=== PATIENT | female | born 1945 | race Caucasian/White ===

== ENCOUNTER 2016-12-20 00:24 | Observation (INO) | payer MEDICARE, MEDICAID ==
[~2016-12-20 00:24] MED LIST: ASPI81TA11 OR; ATEN1TAB73 PO; HYDR-3535 PO
[2016-12-20 00:26] VITALS: BP 187/89; PULSE 66; RESP 20; TEMP 97.8; O2SAT 95
[2016-12-20 01:30] VITALS: BP 166/79; PULSE 61; RESP 16; O2SAT 95; O2SAT 97
[2016-12-20] MEDS ORDERED: ASPIRIN 81 MG CHEW TAB PO ONE (01:45)
[2016-12-20] MEDS ORDERED: NITROGLYCERIN 2% OINT 1 GM PACKET TOP ONE (01:45)
[2016-12-20] MEDS ORDERED: NITROGLYCERIN 0.4 MG SL 25 TABS/BTL SL ONE (01:45)
[2016-12-20] MEDS ORDERED: SODIUM CHLORIDE 0.9% FLUSH 10 ML FLUSH IVF PRN (01:45)
--- NOTE | 2016-12-20 02:09 | RADRPT ---
EXAM DATE/TIME: 12/20/2016 01:51 [facility] COMPARISON: CHEST SINGLE AP, August 06, 2014, 16:56. INDICATIONS : Chest pain, shortness of breath. MEDICAL HISTORY : Hypertension. Diabetes mellitus type II. Hepatitis B. Arthritis. SURGICAL HISTORY : None. ENCOUNTER: Initial ACUITY: 1 day PAIN SCORE: 10/10 LOCATION: Right upper chest FINDINGS: A single view of the chest demonstrates the lungs to be symmetrically aerated without evidence of mas s, infiltrate or effusion. Chronic elevation of the right hemidiaphragm. The cardiomediastinal contou rs are unremarkable. Osseous structures are intact. CONCLUSION: No acute disease. Benson Johnson Jr., MD on December 20, 2016 at 2:07 Board Certified Radiologist. This report was verified electronically.
[2016-12-20 02:22] LABS: BASOPHIL # 0.1 TH/MM3 (0-0.2); BASOPHIL % 1.3 % (0.0-2.0); EOSINOPHIL # 0.1 TH/MM3 (0-0.4); EOSINOPHIL % 1.7 % (0.0-4.0); HEMATOCRIT 40.6 % (35.0-46.0); HEMO FLAGS DIFF FINAL; LYMPH % 19.3 % (9.0-44.0); LYMPHOCYTE # 1.7 TH/MM3 (1.0-4.8); MEAN CELL VOLUME 87.1 FL (80.0-100.0); MEAN CORPUSCULAR HEMOGLOBIN 29.2 PG (27.0-34.0); MEAN CORPUSCULAR HGB CONC 33.5 % (32.0-36.0); MONO % 6.8 % (0.0-8.0); NEUT % 70.9 % (16.0-70.0); PLATELET COUNT 307 TH/MM3 (150-450); RED BLOOD COUNT 4.66 MIL/MM3 (4.00-5.30); RED CELL DISTRIBUTION WIDTH 15.9 % (11.6-17.2); WHITE BLOOD COUNT 8.5 TH/MM3 (4.0-11.0)
--- NOTE | 2016-12-20 02:30 | PD ---
HPI Chief Complaint: Chest Pain Time Seen by Provider: 01:28 Travel History International Travel<30 days: No Contact w/Intl Traveler<30days: No Traveled to known affect area: No History of Present Illness HPI The patient is a 71 year old female who presents to the [facility] emergency department with a history of chest pain that began suddenly 20-30 minutes after eating a fatty meal at 8 PM. The patient reports that the pain initially began in her back and then radiated around underneath bilateral breasts. The patient reports that the pain was similar to prior episodes of angina. 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 She has made an appointment to follow-up recently. She reports that on November 28 she was actually seen at [facility] related to a recurrence of her atrial fibrillation. She reports that she does take an aspirin daily for this. The patient reports that her last stress test was approximately 7 years ago. She reports that she took in total 3 sublingual nitroglycerin to relieve the pain. She reports that the third one while did help. She denies having any diaphoresis, radiation of pain up into her jaw or into her arms, nausea or vomiting associated with this. She does however report having some dyspnea on exertion today. The patient denies any recent fevers, cough, congestion, neck pain, abdominal pain, vomiting, diarrhea, urinary symptoms, or neurologic symptoms. [facility] Past Medical History Narrative Medical The patient's past medical history is significant for a reported history of atrial fibrillation, angina, arthritis with chronic pain in her back, anxiety disorder, and hypertension. Hx Anticoagulant Therapy: Yes Arthritis: Yes Asthma: No Atrial Fibrillation: Yes (RATE CONTROLLED) Autoimmune Disease: No Anxiety: Yes Cardiovascular Problems: Yes COPD: No Cerebrovascular Accident: Yes Diabetes: Yes Hepatitis: Yes (B) Hypertension: Yes Seizures: No Thyroid Disease: No ?: Not Menopausal: Yes Dilation and Curettage (D&C): Yes (x 2) Past Surgical History Narrative Surgical The patient's past surgical history is reportedly significant for a cholecystectomy. Cholecystectomy: Yes Genitourinary Surgery: Yes (HEMORRIODS) Gynecologic Surgery: Yes (D&C x 2) Other Surgery: Yes (HEMORRHOIDECTOMY) Social History Alcohol Use: Yes (OCC) Tobacco Use: No Substance Use: No Allergies-Medications (Allergen,Severity, Reaction): Coded Allergies: Enalapril (Verified Allergy, Severe, TONGU SWELLING, 12/20/16) Latex (Verified Allergy, Severe, Rash, 12/20/16) Relafen (Verified Allergy, Severe, Anaphylaxis, 12/20/16) Shellfish (Verified Allergy, Severe, HIVES, 12/20/16) PT DENIES ALLERGY Phenergan (Verified Allergy, Mild, 12/20/16) FELT LIKE SHE COULDN'T MOVE AFTER IM; PT STATES SHE CAN TAKE PO Uncoded Allergies: STEROID (Adverse Reaction, Severe, TACHYCARDIA , 10/06/12) Reported Meds & Prescriptions Reported Meds & Active Scripts Active Reported Ativan (Lorazepam) 0.5 Mg Tab 0.5 Mg PO DAILY PRN Nitrostat SL (Nitroglycerin) 0.4 Mg Subl 0.4 Mg SL DIRECTED PRN 1 tablet under the tongue as needed for chest pain. Repeat every 5 minutes for a total of 3 DOSES or call 911 if NO relief. Niacin 500 Mg Tab 500 Mg PO DAILY Lortab (Hydrocodone-Acetaminophen) 10-325 Mg Tab 1 Tab PO BID PRN Aspirin 81 Mg Tabdr 81 Mg PO DAILY Atenolol 25 Mg Tab 25 Mg PO DAILY Cartia Xt (Diltiazem ER 24 HR) 240 Mg Caper 240 Mg PO DAILY Review of Systems Except as stated in HPI: all other systems reviewed are Neg General / Constitutional: No: Fever Eyes: No: Visual changes HENT: No: Headaches, Congestion Cardiovascular: Positive: Chest Pain or Discomfort, Dyspnea on exertion Respiratory: Positive: Shortness of Breath, No: Cough Gastrointestinal: No: Abdominal Pain Genitourinary: No: Dysuria Musculoskeletal: No: Pain Skin: No Rash Neurologic: No: Weakness Psychiatric: No: Depression Endocrine: No: Polydipsia Hematologic/Lymphatic: No: Easy Bruising Physical Exam Narrative General: The patient is a well-developed well-nourished female in no acute distress. Head and Neck exam: Head is normocephalic atraumatic. Eyes: EOMI, pupils are equal round and reactive to light. Nose: Midline septum with pink mucous membranes Mouth: Dentition unremarkable. Moist mucus membranes. Posterior oropharynx is not erythematous. No tonsillar hypertrophy. Uvula midline. Airway patent. Neck: No palpable lymphadenopathy. No nuchal rigidity. No thyromegaly. Cardiovascular: Regular rate and rhythm without murmurs, gallops, or rubs. No pulse deficit to the extremities and simultaneous auscultation and palpation of her radial artery. Lungs: Clear to auscultation bilaterally. No wheezes, rhonchi, or rales. Abdomen: Soft, without tenderness to palpation in all 4 quadrants of the abdomen. No guarding, rebound, or rigidity. Normal bowel sounds are audible. No tenderness on palpation of McBurney's point. Negative [place] sign. Extremities: No clubbing, cyanosis, or edema. 2+ pulses in all 4 extremities. No calf tenderness on palpation. Back: No spinous process tenderness to palpation. No costovertebral angle tenderness to palpation. Neurologic Exam: Grossly nonfocal. Skin Exam: No rash noted. Intact skin that is warm and dry. Data Data Last Documented VS Vital Signs Date Time Temp Pulse Resp B/P Pulse Ox O2 Delivery O2 Flow Rate FiO2 12/20/16 01:30 61 16 166/79 95 Room Air 12/20/16 00:26 97.8 Orders Electrocardiogram (12/20/16 01:35) B-Type Natriuretic Peptide (12/20/16 01:35) Ckmb (Isoenzyme) Profile (12/20/16 01:35) Complete Blood Count With Diff (12/20/16 01:35) Comprehensive Metabolic Panel (12/20/16 01:35) Magnesium (Mg) (12/20/16 01:35) Prothrombin Time / Inr (Pt) (12/20/16 01:35) Act Partial Throm Time (Ptt) (12/20/16 01:35) Troponin I (12/20/16 01:35) Lipase (12/20/16 01:35) Chest, Single Ap (12/20/16 01:35) Ecg Monitoring (12/20/16 01:35) Bilateral Bp Monitoring (12/20/16 01:35) Iv Access Insert/Monitor (12/20/16 01:35) Oximetry (12/20/16 01:35) Oxygen Administration (12/20/16 01:35) Aspirin Chew (Aspirin Chew) (12/20/16 01:45) Nitroglycerin 2% Oint (Nitroglycerin 2% (12/20/16 01:45) Sodium Chloride 0.9% Flush (Ns Flush) (12/20/16 01:45) Nitroglycerin Sl (Nitrostat Sl) (12/20/16 01:45) Admit Order (Ed Use Only) (12/20/16 03:21) Labs Laboratory Tests Test 12/20/16 02:05 White Blood Count 8.5 TH/MM3 Red Blood Count 4.66 MIL/MM3 Hemoglobin 13.6 GM/DL Hematocrit 40.6 % Mean Corpuscular Volume 87.1 FL Mean Corpuscular Hemoglobin 29.2 PG Mean Corpuscular Hemoglobin 33.5 % Concent Red Cell Distribution Width 15.9 % Platelet Count 307 TH/MM3 Mean Platelet Volume 8.8 FL Neutrophils (%) (Auto) 70.9 % Lymphocytes (%) (Auto) 19.3 % Monocytes (%) (Auto) 6.8 % Eosinophils (%) (Auto) 1.7 % Basophils (%) (Auto) 1.3 % Neutrophils # (Auto) 6.0 TH/MM3 Lymphocytes # (Auto) 1.7 TH/MM3 Monocytes # (Auto) 0.6 TH/MM3 Eosinophils # (Auto) 0.1 TH/MM3 Basophils # (Auto) 0.1 TH/MM3 CBC Comment DIFF FINAL Differential Comment Prothrombin Time 10.1 SEC Prothromb Time International 0.9 RATIO Ratio Activated Partial 26.1 SEC Thromboplast Time Sodium Level 142 MEQ/L Potassium Level 3.8 MEQ/L Chloride Level 107 MEQ/L Carbon Dioxide Level 27.7 MEQ/L Anion Gap 7 MEQ/L Blood Urea Nitrogen 18 MG/DL Creatinine 1.06 MG/DL Estimat Glomerular Filtration 51 ML/MIN Rate Random Glucose 98 MG/DL Calcium Level 9.5 MG/DL Magnesium Level 2.2 MG/DL Total Bilirubin 0.3 MG/DL Aspartate Amino Transf 18 U/L (AST/SGOT) Alanine Aminotransferase 22 U/L (ALT/SGPT) Alkaline Phosphatase 65 U/L Total Creatine Kinase 77 U/L Troponin I LESS THAN 0.02 NG/ML B-Type Natriuretic Peptide 15 PG/ML Total Protein 7.2 GM/DL Albumin 3.5 GM/DL Lipase 231 U/L MDM Medical Decision Making Medical Screen Exam Complete: Yes Emergency Medical Condition: Yes Medical Record Reviewed: Yes Interpretation(s) Last Impressions Chest X-Ray 12/20/16 6249 Signed Impressions: Service Date/Time: Tuesday, December 20, 2016 01:51 - CONCLUSION: No acute disease. Benson Johnson Jr., MD Differential Diagnosis Acute coronary syndrome, versus anxiety disorder, versus acid reflux, versus recurrence of A. fib with RVR, versus new-onset congestive heart failure, versus pneumonia, versus pneumothorax, versus pyelonephritis Narrative Course During the course of the patients emergency department visit, the patients history, examination, and differential diagnosis were reviewed with the patient. The patient had IV access obtained and blood work sent for analysis. The patient was placed on a hall monitor with oximetry and blood pressure monitoring. An EKG was done on arrival. The patient's EKG shows a sinus rhythm heart rate is 61, no acute ST segment elevation or depression. T waves are inverted in V1, V2. The patient was initially provided aspirin 162 mg by mouth 1. Nitroglycerin sublingual 1, nitroglycerin 1 inch the chest wall. The patients laboratory studies were reviewed and remarkable for a white count of 8.5, hemoglobin 13.6, platelets 307 with neutrophils 70.9, CMP is remarkable for creatinine 1.06, GFR 51, troponin I less than 0.02, CPK 77, BNP 15, lipase 231, PT PTT within normal limits. Radiology studies were reviewed and remarkable for a chest x-ray that shows no acute abnormality. The patients results were discussed with the patient, including the plan of care. I explained that further testing and/ or monitoring is indicated based on the patients history, examination, and/ or laboratory findings. Therefore, I recommended admission for additional evaluation. The patient expressed understanding and was agreeable with this plan. The patient was admitted to the hospital in stable condition and sent to a bed under the care of the chest pain center. Diagnosis Primary Impression: Chest pain, rule out acute myocardial infarction Admitting Information Admitting Physician Requests: June Christian MD December 20, 2016 02:30
[2016-12-20 02:32] LABS: APTT (PATIENT) 26.1 SEC (24.3-30.1); INTERNATIONAL NORMALIZED RATIO 0.9 RATIO; PROTHROMBIN TIME - PATIENT 10.1 SEC (9.8-11.6)
[2016-12-20 02:53] LABS: ALT (GPT) 22 U/L (10-53); ANION GAP 7 MEQ/L (5-15); AST (GOT) 18 U/L (15-37); BICARBONATE 27.7 MEQ/L (21.0-32.0); BLOOD UREA NITROGEN 18 MG/DL (7-18); CHLORIDE 107 MEQ/L (98-107); GLOMERULAR FILTRATION RATE 51 ML/MIN (>89); MAGNESIUM 2.2 MG/DL (1.5-2.5); POTASSIUM 3.8 MEQ/L (3.5-5.1); SODIUM (NA) 142 MEQ/L (136-145)
[2016-12-20 02:57] LABS: ALKALINE PHOSPHATASE 65 U/L (45-117); TOTAL BILIRUBIN ADULT 0.3 MG/DL (0.2-1.0)
[2016-12-20 03:07] LABS: CREATINE KINASE 77 U/L (26-192)
[2016-12-20] MEDS ORDERED: ASPI1TAB69 PO (03:10)
[2016-12-20] MEDS ORDERED: CART240C PO (03:10)
[2016-12-20] MEDS ORDERED: HYDR-3535 PO (03:10)
[2016-12-20] MEDS ORDERED: NIAC500T5 PO (03:10)
[2016-12-20] MEDS ORDERED: LORA-392 PO (03:10)
[2016-12-20] MEDS ORDERED: NITR0.4S SL (03:10)
[2016-12-20] MEDS ORDERED: ATEN25TA PO (03:10)
[2016-12-20] MEDS ORDERED: ACETAMINOPHEN 500 MG CPLT PO PRN (04:15)
[2016-12-20] MEDS ORDERED: SODIUM CHLORIDE 0.9% FLUSH 10 ML FLUSH IV FLUSH PRN (04:15)
[2016-12-20] MEDS ORDERED: ONDANSETRON HCL 4 MG/2 ML VIAL IV PRN (04:15)
[2016-12-20] MEDS: NITROGLYCERIN 2% OINT 1 GM PACKET TOP SCH ×2 (06:00→12:00)
[2016-12-20 06:01] LABS: CREATINE KINASE 65 U/L (26-192)
[2016-12-20] MEDS ORDERED: LORazepam 0.5 MG TAB PO PRN (08:00)
[2016-12-20] MEDS ORDERED: ACETAMINOPHEN/HYDROcodone 325 MG/10 MG TAB PO PRN (08:00)
[2016-12-20 08:03] VITALS: BP 160/74; PULSE 60; RESP 22; TEMP 98.4; O2SAT 93
--- NOTE | 2016-12-20 08:20 | HHI.HP ---
[facility] Primary Care Physician Isra Ibanez MD Chief Complaint Chest pain History of Present Illness This is a 71-year-old female that presents to ED via private vehicle complaining of chest discomfort. She states that she had a fatty meal about 8: 00 last evening and 1 hour later she developed pain across her lower chest. It was a 4-5 out of 10. She took 3 baby aspirins and a subluminal nitroglycerin which does change her symptoms. She took another subluminal nitroglycerin without change. She states the third subluminal nitroglycerin did bring the discomfort down a little bit but not resolved. The symptoms last several hours. She had no associated short of breath nausea or diaphoresis. Patient states she's had myocardial infarctions in the past. Has never had a heart catheterization. 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 Dao but also states she has not seen her in several years. She states that she suffers from social anxiety disorder and has a hard time getting out of the house. She also has history of paroxysmal atrial fibrillation and states it has been a several years since she's had A. fib. Denies recent illness. Denies fevers or chills. Review of Systems General: Patient denies fevers, chills recent, and recent travel HEENT: Patient denies headache, sore throat, difficulty swallowing. Cardiovascular: Has the chest discomfort as mentioned above. Denies sensation of heart beating rapidly or irregularly. No syncope. Denies diaphoresis. Respiratory: Denies shortness of breath or inspirational chest discomfort. Denies coughing wheezing or hemoptysis. GI: Patient denies nausea, vomiting, diarrhea, abdominal pain, bloody stools. Musculoskeletal: Patient denies joint pain or edema. Denies calf pain or edema. Neurovascular: Patient denies numbness, tingling, weakness in extremities. Denies headache. Endocrine: Denies polyuria and polydipsia. Hematologic: Denies easy bruising. Skin: Denies rash or itching. Past Family Social History Allergies: Coded Allergies: Enalapril (Verified Allergy, Severe, TONGU SWELLING, 12/20/16) Latex (Verified Allergy, Severe, Rash, 12/20/16) Relafen (Verified Allergy, Severe, Anaphylaxis, 12/20/16) Shellfish (Verified Allergy, Severe, HIVES, 12/20/16) PT DENIES ALLERGY Phenergan (Verified Allergy, Mild, 12/20/16) FELT LIKE SHE COULDN'T MOVE AFTER IM; PT STATES SHE CAN TAKE PO Uncoded Allergies: STEROID (Adverse Reaction, Severe, TACHYCARDIA , 10/06/12) Past Medical History Paroxysmal atrial fibrillation, CVA in 1999, social anxiety disorder, hyperlipidemia. States she had an HI in the past but denies further workup to evaluate for coronary artery disease. Denies diabetes and hypertension. Past Surgical History Cholecystectomy, hemorrhoidectomy, D&C. Reported Medications Reported Meds & Active Scripts Active Reported Ativan (Lorazepam) 0.5 Mg Tab 0.5 Mg PO DAILY PRN Nitrostat SL (Nitroglycerin) 0.4 Mg Subl 0.4 Mg SL DIRECTED PRN 1 tablet under the tongue as needed for chest pain. Repeat every 5 minutes for a total of 3 DOSES or call 911 if NO relief. Niacin 500 Mg Tab 500 Mg PO DAILY Lortab (Hydrocodone-Acetaminophen) 10-325 Mg Tab 1 Tab PO BID PRN Aspirin 81 Mg Tabdr 81 Mg PO DAILY Atenolol 25 Mg Tab 25 Mg PO DAILY Cartia Xt (Diltiazem ER 24 HR) 240 Mg Caper 240 Mg PO DAILY Active Ordered Medications Current Medications Medications (Trade) Dose Ordered Sig/Huy Route Start Time Stop Time Status Last Admin (NS Flush) 2 ml UNSCH PRN IVF 12/20/16 01:45 (NS Flush) 2 ml UNSCH PRN IV FLUSH 12/20/16 04:15 (NS Flush) 2 ml BID IV FLUSH 12/20/16 09:00 (Tylenol) 500 mg Q4H PRN PO 12/20/16 04:15 (Zofran Inj) 4 mg Q6H PRN IV 12/20/16 04:15 (Protonix) 40 mg DAILY PO 12/20/16 09:00 (Nitroglycerin 2% Oint) 1 inch Q6HR TOP 12/20/16 06:00 (Aspirin) 325 mg DAILY PO 12/20/16 09:00 (Ecotrin Ec) 81 mg DAILY PO 12/20/16 09:00 UNV (Tenormin) 25 mg DAILY PO 12/20/16 09:00 UNV (Cardizem Cd) 240 mg DAILY PO 12/20/16 09:00 UNV ([place] 10-325 Mg) 1 tab BID PRN PO 12/20/16 08:00 UNV (Ativan) 0.5 mg DAILY PRN PO 12/20/16 08:00 UNV Family History There is family history of CAD. Social History Patient does not smoke, drink alcohol, or use illicit drugs. Physical Exam Vital Signs Vital Signs Date Time Temp Pulse Resp B/P Pulse Ox O2 Delivery O2 Flow Rate FiO2 12/20/16 08:03 98.4 60 22 160/74 93 12/20/16 01:30 61 16 166/79 95 Room Air 12/20/16 01:30 97 Room Air 12/20/16 00:26 97.8 66 20 187/89 95 Room Air Physical Exam GENERAL: This is a well-nourished, well-developed patient, in no apparent distress. Patient speaks in clear complete sentences. Patient is pleasant. HEENT: Head is atraumatic and normocephalic. Neck is supple without lymphadenopathy and trachea is midline. No JVD or carotid bruits. CARDIOVASCULAR: Regular rate and rhythm without murmurs, gallops, or rubs. RESPIRATORY: Clear to auscultation. Breath sounds equal bilaterally. No wheezes , rales, or rhonchi. Chest wall is nontender. No use of accessory muscles. GASTROINTESTINAL: Abdomen is nontender, nondistended. Abdomen soft. No obvious pulsatile mass or bruit. No CVA tenderness. Strong femoral pulses bilaterally. Normal bowel sounds in all quadrants. MUSCULOSKELETAL: Patient is moving upper and lower extremities freely. No calf tenderness or edema, no Homans sign. Strong pulses in upper and lower extremities. NEUROLOGICAL: Patient is alert and oriented. Cranial nerves 2-12 are grossly intact. No focal deficits and speech is clear. SKIN: No rash and turgor is normal. Laboratory Laboratory Tests Test 12/20/16 12/20/16 02:05 05:15 White Blood Count 8.5 Red Blood Count 4.66 Hemoglobin 13.6 Hematocrit 40.6 Mean Corpuscular Volume 87.1 Mean Corpuscular Hemoglobin 29.2 Mean Corpuscular Hemoglobin 33.5 Concent Red Cell Distribution Width 15.9 Platelet Count 307 Mean Platelet Volume 8.8 Neutrophils (%) (Auto) 70.9 Lymphocytes (%) (Auto) 19.3 Monocytes (%) (Auto) 6.8 Eosinophils (%) (Auto) 1.7 Basophils (%) (Auto) 1.3 Neutrophils # (Auto) 6.0 Lymphocytes # (Auto) 1.7 Monocytes # (Auto) 0.6 Eosinophils # (Auto) 0.1 Basophils # (Auto) 0.1 CBC Comment DIFF FINAL Differential Comment Prothrombin Time 10.1 Prothromb Time International 0.9 Ratio Activated Partial 26.1 Thromboplast Time Sodium Level 142 Potassium Level 3.8 Chloride Level 107 Carbon Dioxide Level 27.7 Anion Gap 7 Blood Urea Nitrogen 18 Creatinine 1.06 Estimat Glomerular Filtration 51 Rate Random Glucose 98 Calcium Level 9.5 Magnesium Level 2.2 Total Bilirubin 0.3 Aspartate Amino Transf 18 (AST/SGOT) Alanine Aminotransferase 22 (ALT/SGPT) Alkaline Phosphatase 65 Total Creatine Kinase 77 65 Troponin I LESS THAN 0.02 LESS THAN 0.02 B-Type Natriuretic Peptide 15 Total Protein 7.2 Albumin 3.5 Lipase 231 Result Diagram: 12/20/1620412/20/16204 Imaging Last 24 hours Impressions Chest X-Ray 12/20/16134 Signed Impressions: Service Date/Time: Tuesday, December 20, 2016 01:51 - CONCLUSION: No acute disease. Benson Johnson Jr., MD Course First 2 EKGs have sinus bradycardia with nonspecific anterior T-wave changes. Assessment and Plan Assessment and Plan * Chest pain: Patient has had first 2 EKGs and first 2 troponins are normal. She has been seen by Dr. Vivek Keller of cardiology in the chest pain center and will undergo a Lexiscan. If her stress test were to be nonischemic she will be discharged home with instructions to follow-up with her primary care physician. * Hyperlipidemia: Continue current medication. * Paroxysmal atrial fibrillation: Continue current medication. * Social anxiety disorder: Have Ativan when necessary. Patient is stable this time. She is agreeable to this plan. Fermín Prince December 20, 2016 08:20
[2016-12-20] MEDS ORDERED: DILTIAZEM-CD 240 MG CAP ER PO SCH (09:00)
[2016-12-20] MEDS ORDERED: ASPIRIN 325 MG TAB PO SCH (09:00)
[2016-12-20] MEDS ORDERED: PANTOPRAZOLE SOD 40 MG DELAYED RELEASE TAB PO SCH (09:00)
[2016-12-20] MEDS ORDERED: SODIUM CHLORIDE 0.9% FLUSH 10 ML FLUSH IV FLUSH SCH (09:00)
[2016-12-20] MEDS ORDERED: ATENOLOL 25 MG TAB PO SCH (09:00)
[2016-12-20] MEDS ORDERED: ASPIRIN EC 81 MG TABEC PO SCH (09:00)
[2016-12-20] MEDS ORDERED: REGADENOSON INJ 0.4 MG/5 ML SYR ONE (10:18)
[2016-12-20 11:33] VITALS: BP 148/79; PULSE 79; RESP 16; TEMP 99; O2SAT 96
--- NOTE | 2016-12-20 11:39 | RADRPT ---
EXAM DATE/TIME: 12/20/2016 09:51 [facility] COMPARISON: No previous studies available for comparison. INDICATIONS : Mid chest pain for one day. Angina. Atrial fibrillation. DOSE: 35 mCi Tc99m Myoview at stress. 11 mCi Tc99m Myoview at rest. 0.4 mg Lexiscan STRESS SYMPTOMS: Anxious and chest pressure. EJECTION FRACTION: > 70% MEDICAL HISTORY : Diabetes mellitus type 2. Hypertension. SURGICAL HISTORY : Hemorrhoidectomy. Cholecystectomy. ENCOUNTER: Initial ACUITY: 1 day PAIN SCALE: 6/10 LOCATION: Midsternal chest TECHNIQUE: The patient underwent pharmacologic stress with infusion of prescribed dose. Continuous ECG tracing was monitored during stress. Gated SPECT imaging was performed after stress and conventional SPECT i maging was performed at rest. The examination was performed on a SPECT/CT scanner, both attenuation and non-corrected datasets were reviewed. FINDINGS: There is stress induced redistribution in the lateral and inferior wall. The best perfused myocardiu m is the septum. The ejection fraction is greater than 70% with minimal hypokinesis in the lateral a nd inferior wall. CONCLUSION: Stress induced ischemia lateral inferior wall. RISK CATEGORY: Low (<1% Annual Mortality Rate) Amos Jacinto MD FACR on December 20, 2016 at 11:28 Board Certified Radiologist. This report was verified electronically.
--- NOTE | 2016-12-20 12:48 | PD.AMA ---
Against Medical Advice Note Discharge Disposition: Against Medical Advice AMA Statement Patient Karey Elkins has decided to leave the hospital against medical advice. This patient has the capacity to refuse care and understands the risks of leaving, including permanent disability and/or , and has had an opportunity to ask questions about her condition. The patient has been informed that she may return for care at any time, and follow up has been arranged/ advised. Fermín Prince December 20, 2016 12:48
--- NOTE | 2016-12-21 17:57 | EKG ---
Date Performed: 12/20/2016 Time Performed: 01:23:09 PTAGE: 71 years EKG: Sinus rhythm NORMAL ECG Since PREVIOUS TRACING , no significant change noted DOCTOR: Tracie Dao Interpretating Date/Time 12/21/2016 17:56:31
--- NOTE | 2016-12-21 17:57 | EKG ---
Date Performed: 12/20/2016 Time Performed: 05:15:55 PTAGE: 71 years EKG: SINUS BRADYCARDIA NONSPECIFIC T-WAVE ABNORMALITY BORDERLINE ECG Since PREVIOUS TRACING , no significant change noted PREVIOUS TRACIN08/06/2014 16.14 DOCTOR: Tracie Dao Interpretating Date/Time 12/21/2016 17:56:44
--- NOTE | 2016-12-21 17:58 | TR ---
Date Performed: 12/20/2016 Time Performed: 10:34:00 DOCTOR: Tracie Dao DRUG LIST: CLINICAL HISTORY: CHEST PAIN REASON FOR TEST: CHEST PAIN REASON FOR ENDING: OBSERVATION: CONCLUSION: Lexiscan stress test was performed under standard four minute protocol. Radionucl[place] e was injected one minute prior to ending the test. No electrocardiographic abormalities were present to suggest ischemia. Nuclear imaging and interpretation are pending. COMMENTS:
== END 2016-12-20 13:19 | disposition home or self-care (01) ==
LOC: NEPE 00:24 → NEDA 03:22 → NEPGCP 06:08
DX: R07.89 Other chest pain (principal); I48.0 Paroxysmal atrial fibrillation; I10 Essential (primary) hypertension; E78.5 Hyperlipidemia, unspecified; M54.9 Dorsalgia, unspecified; M19.90 Unspecified osteoarthritis, unspecified site; G89.29 Other chronic pain; E11.9 Type 2 diabetes mellitus without complications; I25.2 Old myocardial infarction; F40.10 Social phobia, unspecified; Z79.01 Long term (current) use of anticoagulants; Z86.73 Personal history of transient ischemic attack (TIA), and cerebral infarction without residual deficits; Z88.8 Allergy status to other drugs, medicaments and biological substances; Z91.040 Latex allergy status; Z91.013 Allergy to seafood; Z79.82 Long term (current) use of aspirin
CPT/HCPCS: 71010; 78452; 80053; 82550; 83690; 83735; 83880; 84484; 85025; 85610; 85730; 93005; 93017; 99285; A9502; G0378; J2785